=== PATIENT | female | born 1995 | race Caucasian/White ===

== ENCOUNTER 2024-01-28 18:51 | Emergency (ER) | payer MEDICAID ==
[~2024-01-28] VITALS: Ht 157.5 cm; Wt 49.9 kg
[2024-01-28 18:59] VITALS: BP 110/74; PULSE 91; RESP 18; TEMP 98.9; O2SAT 100
[2024-01-28] MEDS ORDERED: ACET-8905 PO (19:47)
[2024-01-28] MEDS ORDERED: CEPH-588 PO (19:47)
[2024-01-28] MEDS ORDERED: IBUP-2213 PO (19:47)
[2024-01-28] MEDS: KETOROLAC 60 MG/2 ML VIAL IM ONE (19:56)
== END 2024-01-28 20:05 | disposition home or self-care (01) ==
LOC: MED 18:51
DX: L02.415 Cutaneous abscess of right lower limb (principal); R50.9 Fever, unspecified; R11.0 Nausea; Z79.899 Other long term (current) drug therapy
CPT/HCPCS: 96372; 99283; J1885